=== PATIENT | male | born 1980 | race Caucasian/White ===

== ENCOUNTER → 2018-01-03 15:51 | Outpatient (CLI) | payer MEDICAID, SELFPAY ==
[2018-01-03 17:58] LABS: Amphetamine Urine VISTA NEGATIVE (<1000 ng/mL); Barbiturate Urine VISTA NEGATIVE (< 200 ng/mL); Benzodiazepine Urine VISTA POSITIVE (< 200 ng/mL); Cocaine Urine VISTA NEGATIVE (< 300 ng/mL); Ecstacy Urine VISTA NEGATIVE (< 500 ng/mL); Methadone Urine VISTA NEGATIVE (< 300 ng/mL); PCP Urine VISTA NEGATIVE (< 25 ng/mL); THC Urine VISTA NEGATIVE (< 50 ng/mL); Vista UDS pH Range 6
== END ==
PROVIDERS: Visit Provider Anesthesiology Pain Medicine
DX: F11.20 Opioid dependence, uncomplicated (principal)
CPT/HCPCS: 80307

== ENCOUNTER → 2018-03-14 14:20 | Outpatient (CLI) | payer MEDICAID, SELFPAY | PROVIDERS: Visit Provider Anesthesiology Pain Medicine | DX: F11.20 Opioid dependence, uncomplicated (principal) ==

== ENCOUNTER 2019-02-17 14:31 | Emergency (ER) | payer MEDICAID, SELFPAY ==
[2019-02-17 14:33] VITALS: BP 120/82; PULSE 100; RESP 16; TEMP 36.5; O2SAT 96; BMI 28.0
--- NOTE | 2019-02-17 14:54 | CT_ITS ---
STUDY: CT CERVICAL SPINE WITHOUT CONTRAST REASON FOR EXAM: Male, 38 years old. Status post fall from a truck RADIATION DOSAGE (If Supplied By Facility): CTDIvol = ( 22.36 ) mGy, DLP = ( 579.51 ) mGycm TECHNIQUE: High resolution transaxial imaging was performed without contrast material. Sagittal and coronal images were reconstructed. Individualized dose optimization techniques were used for this CT. COMPARISON: None FINDINGS: Normal craniovertebral junction. Normal anterior atlantoaxial articulation. Normal odontoid process. Normal cervical lordosis. Normal vertebral bodies and posterior osseous elements. C2-3: Normal endplates. Normal disc height and morphology. Normal central canal and intervertebral neuroforamina. C3-4: There is minimal bilateral posterior spondylosis without significant neural foraminal narrowing or central stenosis. C4-5: Normal endplates. Normal disc height and morphology. Normal central canal and intervertebral neuroforamina. C5-6: There is minimal posterior spondylosis without neural foramina narrowing or central stenosis. C6-7: There is posterior spondylosis without neural foramina narrowing or central stenosis. C7-T1: Normal endplates. Normal disc height and morphology. Normal central canal and intervertebral neuroforamina. Normal visualized soft tissue structures. CT/Spine Cervical without Contras IMPRESSION: Mild degenerative change no visualized evidence of an acute fracture. Electronically Signed: Destiny Lisa MD at 15:49 EDT Tel , Service support ,
--- NOTE | 2019-02-17 14:54 | CT_ITS ---
STUDY: CT BRAIN WITHOUT CONTRAST REASON FOR EXAM: Male, 38 years old. Status post fall RADIATION DOSAGE (If Supplied By Facility): CTDIvol = ( 44.99 ) mGy, DLP = ( 863.60 ) mGycm TECHNIQUE: Transaxial CT imaging of the brain was performed without administration of intravenous contrast material. Individualized dose optimization techniques were used for this CT. COMPARISON: None. FINDINGS: Normal soft tissue structures. Normal calvarium. Normal size ventricles and extra-axial spaces for the patient's age. Normal white matter tracts of the cerebral hemispheres. Normal basal ganglia and thalami. Normal brainstem. Normal cerebellum. There is no intracranial hemorrhage. There are no findings of an acute ischemic infarction. There is a minimal focus of sphenoid sinusitis. CT/Brain/Head without Contrast IMPRESSION: No evidence of acute hemorrhage or infarct or edema. Mild sinusitis. Electronically Signed: Destiny Lisa MD at 15:45 EDT Tel , Service support ,
--- NOTE | 2019-02-17 14:57 | ED.VISSUMM ---
- ER Visit Summary Date of Service: 02/17/19 Chief Complaint: Head and neck injury History of Present Illness: The patient is a 38 M fall off a truck bed 1 PM today. He was moving furniture, [employer] was used to assist, he tripped over a board falling off the truck bed hitting his head. approx 2- 3 feet in the air. There is no loss of conscious. States felt neck pain and left lower back pain. No chest pains or shortness breath. No arm weakness or paresthesias. No anticoagulations. Took ibuprofen prior to arrival states with his head pains 8 out of 10. Nausea without vomiting. No previous similar symptoms in the past. He ambulate in the ED. Denies any extremity pain. Reports he had upper tooth bridging years ago, states it got knocked out. No bleeding. Physical Examination: General: Alert and oriented ?3, no acute distress HEENT: Normocephalic, atraumatic. Moist mucosa membranes. No hemotympanum. Upper incisors missing, there is decay teeth in this region. There is no active bleeding. Neck: supple, no midline tenderness paraspinal tenderness. C-collar present. Cardiovascular: Regular rate and rhythm, no murmurs. No chest wall tenderness. Respiratory: Normal breath sounds, symmetric, no distress Abdomen: Soft, nontender, nondistended Extremities: Nontender, no edema, pulses intact ?4 Neuro: no focal neurological deficits. Upper extremity and lower extremity strength intact bilaterally. Test Results: CT head and neck: No intracranial process, no fractures. Mild degenerative changes of the neck. Emergency Department Course and Treatment: Patient no focal deficits. With mechanism of fall 2-3 feet on his head. Image studies CT head negative pain which was negative. C-collar cleared initially treated with fentanyl IM. Reevaluation discussed with patient concussion. Brain rest and concussion precautions discussed. Discussed muscle strain with neck and back. He will continue Tylenol, prescription of Zofran to use as needed. He will follow-up with his PCP for which he states he has been however cannot recall the name. All questions were answered. Treatment Plan: [] Disposition: Discharge Impression: 1. Concussion without loss of consciousness 2. Cervical neck strain 3. Lumbar muscle strain. This note was generated with [employer] dictation software. It may contain incorrect words, spelling, and punctuation that were not noted in review of the chart prior to signing ED Disposition - Plan for ED Patient: Disposition: Home or Assisted Living Diagnosis: Concussion without loss of consciousness, initial encounter, Neck muscle strain, Lumbar strain Instructions: ED Concussion, ED Sprain Strain Neck, ED Sprain Strain Lumbar Prescriptions: Ondansetron [Zofran Odt] 4 mg PO Q8H PRN PRN #10 tablet PRN Reason: Nausea Referrals: Care Physician,No Primary [Primary Care Provider] - Additional Instructions: Tylenol 1 g every [address] head and neck were negative. Follow-up with your doctor.
[2019-02-17] MEDS: fentaNYL 100 MCG/2 ML Ampul 50 MCG IM (15:03)
[2019-02-17 16:32] VITALS: PULSE 82; RESP 18; O2SAT 96
== END 2019-02-17 16:40 | disposition home or self-care (01) ==
PROVIDERS: Emergency Provider Emergency Medicine
DX: S06.0X0A Concussion without loss of consciousness, initial encounter (principal); S16.1XXA Strain of muscle, fascia and tendon at neck level, initial encounter; S39.012A Strain of muscle, fascia and tendon of lower back, initial encounter; V58.4XXA Person boarding or alighting a pick-up truck or van injured in noncollision transport accident, initial encounter; Y93.E6 Activity, residential relocation; Y92.9 Unspecified place or not applicable; Y99.9 Unspecified external cause status; Z72.0 Tobacco use
CPT/HCPCS: 70450; 72125; 96372; 99282